=== PATIENT | female | born 1985 | race Caucasian/White ===

== ENCOUNTER 2021-06-10 12:13 | Emergency (ER) | payer OTHER ==
[2021-06-10 18:20] LABS: SARS-CoV-2 PCR by NAA Not Detected (NotDetected)
== END 2021-06-10 13:55 | disposition home or self-care (01) ==
LOC: ERS 12:13
DX: B34.9 Viral infection, unspecified (principal); Z20.822 Contact with and (suspected) exposure to COVID-19
CPT/HCPCS: 99284; U0003; U0005

== ENCOUNTER 2021-09-11 09:07 | Emergency (ER) | payer OTHER | END 2021-09-11 10:30 | disposition home or self-care (01) | LOC: ERS 09:07 | DX: J32.9 Chronic sinusitis, unspecified (principal); B96.89 Other specified bacterial agents as the cause of diseases classified elsewhere; J06.9 Acute upper respiratory infection, unspecified; F17.290 Nicotine dependence, other tobacco product, uncomplicated | CPT/HCPCS: 87804; 99284 ==

== ENCOUNTER 2021-10-10 08:05 | Emergency (ER) | payer OTHER ==
[2021-10-10 14:08] LABS: SARS-CoV-2 PCR by NAA DETECTED (NotDetected)
== END 2021-10-10 08:30 | disposition home or self-care (01) ==
LOC: ERS 08:05
DX: U07.1 COVID-19 (principal); F17.210 Nicotine dependence, cigarettes, uncomplicated
CPT/HCPCS: U0003; U0005

== ENCOUNTER 2021-10-11 07:13 | Emergency (ER) | payer OTHER ==
[2021-10-11] MEDS ORDERED: Ketorolac Tromethamine 30 MG/ML VIAL ONE (08:06)
[2021-10-11] MEDS ORDERED: Ondansetron PF 4 MG/2 ML Vial ONE (08:06)
[2021-10-11] MEDS ORDERED: diphenhydrAMINE 50 MG/ML VIAL ONE (08:26)
[2021-10-11] MEDS ORDERED: Metoclopramide HCl 10 MG/2 ML VIAL ONE (08:26)
== END 2021-10-11 09:54 | disposition home or self-care (01) ==
LOC: ERS 07:13
DX: U07.1 COVID-19 (principal); G43.909 Migraine, unspecified, not intractable, without status migrainosus; F17.290 Nicotine dependence, other tobacco product, uncomplicated; F17.210 Nicotine dependence, cigarettes, uncomplicated
CPT/HCPCS: 96365; 96375; 99283; J1200; J1885; J2405; J2765; U0003; U0005

== ENCOUNTER 2021-10-14 10:31 | Emergency (ER) | payer OTHER | END 2021-10-14 11:51 | disposition home or self-care (01) | LOC: ERS 10:31 | DX: U07.1 COVID-19 (principal); F17.210 Nicotine dependence, cigarettes, uncomplicated; Z79.899 Other long term (current) drug therapy | CPT/HCPCS: 99283 ==